=== PATIENT | female | born 1990 | race Caucasian/White ===

== ENCOUNTER 2018-04-04 02:00 | Day surgery (SDC) | payer OTHER ==
[2018-04-04 02:26] VITALS: BP 130/71; TEMP 98.8; BMI 35.3
--- NOTE | 2018-04-04 11:05 | PRG ---
DATE OF SERVICE: 04/04/2018 OB ER ENCOUNTER. PRIMARY OB: Dr. Olviier Baird. CHIEF COMPLAINT: Abdominal pain. HISTORY OF PRESENT ILLNESS: The patient is a 28-year-old G4, P2 female with an intrauterine at 27 weeks and 6 days, who is transferred from [facility] for abdominal pain and . The patient reports that she has been having some left lower quadrant pain, mild in nature, and seems to be associated with activity and movement. The patient denies any vaginal bleeding or leakage of fluid. She denies uterine contractions. The patient denies any fever, fall, headache, chest pain, shortness of breath, nausea, vomiting, diarrhea, or constipation. She denies any new rashes, hip problems, knee problems, muscle weakness. Denies vaginal bleeding, leakage of fluid, urinary urgency. PAST MEDICAL HISTORY: Deafness with cochlear implants and vision problems. PAST SURGICAL HISTORY: She had an ectopic in 2010 and a lumpectomy in 2006. SOCIAL HISTORY: Denies drug, alcohol, or tobacco use. ALLERGIES: NO KNOWN DRUG ALLERGIES. MEDICATIONS: vitamins. OB LABS: Hepatitis B surface antigen is nonreactive. RPR is nonreactive. Blood type is A positive with negative antibody screen. She is rubella immune. HIV is nonreactive. REVIEW OF SYSTEMS: Per HPI. PHYSICAL EXAMINATION: VITAL SIGNS: Blood pressure is 130/71, heart rate of 96, respiratory rate of 18, and temperature 98.8. GENERAL: She appears to be in no acute distress. She is alert, oriented, cooperative, and pleasant to interact with. There is some difficulty in communication due to the patient's deafness. She has an affect and predisposition. ABDOMEN: Soft. LUNGS: Clear to auscultation bilaterally. HEART: Regular rate and rhythm. She does have some mild tenderness to palpation in the left lower quadrant, but it does not appear to be causing too much discomfort to the patient. EXTREMITIES: Nontender and nonedematous. heart tracing performed. The fetus was noted to have a baseline in the 140s with moderate long-term variability. Positive 15 x 15 accelerations, no decelerations. The patient has no contractions visible on the monitor. ASSESSMENT AND PLAN: The patient is a 28-year-old female presenting with abdominal pain and noted to have musculoskeletal pain of . No evidence of labor at this time. The patient has a reassuring heart tracing for gestational age. She is being discharged to home with instructions to follow up with Dr. Baird as scheduled and has been given labor precautions. Job ID: [id number]
== END 2018-04-04 03:05 | disposition home or self-care (01) ==
LOC: ERS 02:00 → L&D/OP 03:05
PROVIDERS: ATTEND Obstetrics & Gynecology
DX: O26.892 Other specified pregnancy related conditions, second trimester (principal); R10.32 Left lower quadrant pain; O99.89 Other specified diseases and conditions complicating pregnancy, childbirth and the puerperium; H91.90 Unspecified hearing loss, unspecified ear; Z3A.27 27 weeks gestation of pregnancy; Z79.899 Other long term (current) drug therapy; Z96.21 Cochlear implant status
CPT/HCPCS: 90471; 90686; 99282; G0008

== ENCOUNTER 2018-04-24 20:06 | Day surgery (SDC) | payer OTHER ==
[2018-04-24 20:38] VITALS: BP 127/66; TEMP 98.6; BMI 20.6
[2018-04-24] MEDS ORDERED: Lactated Ringer's 1,000 ML IV SCH ×2 (22:00)
[2018-04-24] MEDS ORDERED: Acetaminophen 500 MG TAB PO SCH (22:00)
[2018-04-24] MEDS ORDERED: diphenhydrAMINE 50 MG/ML VIAL IVP PRN (22:00)
[2018-04-24] MEDS: Metoclopramide HCl 10 MG/2 ML VIAL IVP PRN ×2 (22:23→23:13)
--- NOTE | 2018-04-25 07:55 | PRG ---
DATE OF SERVICE: 04/25/2018 PRIMARY OB: Olivier Baird MD CHIEF COMPLAINT: Headache. HISTORY OF PRESENT ILLNESS: The patient is a 28-year-old G4, P2 female, with an intrauterine at 30 weeks and 5 days, who is presenting with a 2-week history of intermittent severe headaches. The patient denies a history of headaches prior to this event. She reports that her headaches are throbbing, light sensitive. The patient reports that they did not resolve with Tylenol. She also reports that she has been having some vision changes with the headaches. She denies nausea or vomiting or abdominal pain. She reports that the headache feels to be on the top, in the front of her head. The patient denies fall, fever, chest pain, shortness of breath, rhinorrhea, sore throat, dyspnea, or cough, dysuria or frequency, vaginal bleeding or increased discharge. Denies abnormal bleeding. Denies back pain or joint pain. Denies rash or mood changes. PAST MEDICAL HISTORY: She has deafness. PAST SURGICAL HISTORY: Salpingectomy for ectopic in 2009, a lumpectomy in 2006, cochlear implants and elective AB. MEDICATIONS: vitamins and Tylenol. ALLERGIES: NO KNOWN DRUG ALLERGIES. SOCIAL HISTORY: Denies drug, alcohol, tobacco use. LABORATORY DATA: Hepatitis B surface antigen is nonreactive. RPR is nonreactive. Blood type is A-positive with negative antibody screen. She is rubella immune and HIV is nonreactive. REVIEW OF SYSTEMS: Per HPI. PHYSICAL EXAMINATION: VITAL SIGNS: Blood pressure 120/63, heart rate of 90, respiratory rate of 17, temperature 98.6. GENERAL: She appears to be alert, oriented, cooperative, and pleasant to interact with. HEAD: Normocephalic, atraumatic. LUNGS: Clear to auscultation bilaterally. HEART: Has regular rate and rhythm. ABDOMEN: Gravid and soft, nontender. EXTREMITIES: Nontender, nonedematous. : Has been deferred. heart tracing shows a baseline in the 130s with moderate long-term variability, positive 15 x 15 accelerations, no decelerations. Tocometer does not show any contractions. ASSESSMENT AND PLAN: The patient is a 28-year-old G4, P2 female with an intrauterine at 30 weeks and 5 days, who is presenting with headaches. Her history is consistent with migraine headaches. We explained to her the course of treatment with IV fluids and IV Reglan and Benadryl. After one dose of Benadryl and two doses of Reglan, the patient reports that her headaches have completely resolved. Fetus has a reactive NST and category 1 tracing. The patient is being discharged to home with instructions to follow up with her primary OB as scheduled. labor precautions have been given. Job ID: [id number]
== END 2018-04-24 23:40 | disposition home or self-care (01) ==
LOC: L&D/OP 20:06
PROVIDERS: ATTEND Obstetrics & Gynecology
DX: O99.89 Other specified diseases and conditions complicating pregnancy, childbirth and the puerperium (principal); R51 Headache; H91.90 Unspecified hearing loss, unspecified ear; Z3A.30 30 weeks gestation of pregnancy; Z96.21 Cochlear implant status; Z79.899 Other long term (current) drug therapy
CPT/HCPCS: 96360; 96361; 96375; 99283; J1200; J2765

== ENCOUNTER 2018-06-21 05:30 | Inpatient (IN) | payer OTHER ==
--- NOTE | 2018-06-20 20:48 | PDOC.LDHP ---
Labor and Delivery H&P Chief complaint: scheduled induction HPI: 28 y/o at 39 and 0/7 weeks for term medical induction of labor. Due date: 06/28/18 Grav: 5 Para: 2 Current complications: other (hearing impairment) Abnormal US findings: No Current medications: pre-deven vitamins Allergies/Adverse Reactions: Allergies Allergy/AdvReac Type Severity Reaction Status Date / Time No Known Drug Allergies Allergy Verified 04/24/18 20:34 - Physical Exam Vital signs reviewed and normal: yes General: NAD, resting Heart: RRR Lungs: CTAB Abdomen: gravid Extremeties: no edema FHT: category 1 - Assessment L&D Assessment: elective induction at term - Plan Plan: admit to L&D, cervical ripening
[~2018-06-21 05:30] MED LIST: Butorphanol Tartrate 1 MG/ML VIAL SLOW IVP PRN; Carboprost 250 MCG/ML AMP IM PRN; Diphenoxylate HCl/Atropine Tablet PO PRN; Docusate 100 MG CAP PO PRN; HYDROcodone/Acetaminophen 5/325 mg Tablet PO PRN; Ibuprofen 800 MG TAB PO PRN; Lidocaine 1% (PF) 30 ML VIAL SC PRN; Methylergonovine 0.2 MG/ML VIAL IM PRN; Misoprostol 200 MCG TAB PR PRN; NS w/ Oxytocin 10 units 500 ML IV SCH; Ondansetron PF 4 MG/2 ML Vial IVP PRN; Promethazine HCl 25 MG/ML VIAL IM PRN
[2018-06-21 06:47] VITALS: BMI 37.8
[2018-06-21] MEDS: Lactated Ringer's 1,000 ML IV SCH ×2 (07:17→15:00)
[2018-06-21 07:48] LABS: Hemoglobin 10.8 g/dL (12.0-16.0); Mean Corpuscular HGB CONC 33.5 g/dL (32.0-36.0); Mean Corpuscular Hemoglobin 28.2 pg (27.0-31.0); Mean Corpuscular Volume 84.2 fL (78.0-98.0); Mean Platelet Volume 9.3 fL (7.4-10.4); Platelet Count 189 thou/uL (130-400); RBC Distribution Width 18.1 % (11.5-14.5); Red Blood Cell (RBC) Count 3.82 mill/uL (4.20-5.40); White Blood Cell (WBC) Count 9.4 thou/uL (4.8-10.8)
[2018-06-21 08:26] LABS: HBSAg Index 0.33 S/CO (0-0.99); Hep B Surf Ag Non-Reactive S/CO (NonReactive); Syphilis Antibody Nonreactive (Nonreactive); Syphilis Antibody Index 0.02 S/CO (<1.00 Non-Reactive)
[2018-06-21] MEDS ORDERED: Sodium Chloride 0.9% (PF) 10 ML VIAL ONE (11:11)
[2018-06-21] MEDS ORDERED: Bupivacaine 0.25% HCL 30 ML VIAL ONE (11:11)
[2018-06-21] MEDS ORDERED: Fentanyl 4 mcg/Bup 0.1% Cadd 100 ML ONE (14:12)
[2018-06-21] MEDS ORDERED: Lidocaine 1.5%/Epinephrine 1:200,000 5 ML AMPUL IJ ONE (15:04)
[2018-06-21] MEDS ORDERED: Eucerin (Mineral Oil/Petrolatum,White) 30 gm Jar TOP PRN (15:31)
[2018-06-21] MEDS ORDERED: Promethazine HCl 25 MG/ML VIAL IM PRN ×2 (15:31→20:52)
[2018-06-21] MEDS ORDERED: diphenhydrAMINE 50 MG/ML VIAL IVP PRN (15:31)
[2018-06-21] MEDS ORDERED: Ondansetron PF 4 MG/2 ML Vial IVP PRN ×2 (15:31→20:52)
[2018-06-21] MEDS ORDERED: Naloxone HCl 0.4 mg/ml Vial IVP PRN ×2 (15:31)
[2018-06-21] MEDS ORDERED: Lactated Ringer's 500 ML IV PRN (15:31)
[2018-06-21] MEDS ORDERED: Acetaminophen 325 MG TAB PO PRN (15:31)
[2018-06-21] MEDS ORDERED: ePHEDrine/0.9% NaCl/PF SYRINGE 50 mg/10 ml SLOW IVP PRN (15:31)
[2018-06-21] MEDS ORDERED: Fentanyl 4 mcg/Bupivacaine 0.1% Cassette 100 ML EPIDURAL SCH (15:45)
[2018-06-21] MEDS ORDERED: Communication Order-Pharmacy FS SCH (15:45)
[2018-06-21] MEDS: NS / Oxytocin 40 units/1000ml 1,000 ML IV PRN ×2 (19:35→20:50)
[2018-06-21] MEDS ORDERED: Preparation H Ointment 28 GM TUBE PR PRN (20:52)
[2018-06-21] MEDS ORDERED: Benzocaine-Menthol 82.5 ML CAN TOP PRN (20:52)
[2018-06-21] MEDS ORDERED: diphenhydrAMINE 25 MG CAP PO PRN (20:52)
[2018-06-21] MEDS ORDERED: Bisacodyl 10 MG SUPP PR PRN (20:52)
[2018-06-21] MEDS ORDERED: HYDROcodone/Acetaminophen 5/325 mg Tablet PO PRN (20:52)
[2018-06-21] MEDS ORDERED: Milk Of Magnesia 30 ML UDCUP PO PRN (20:52)
[2018-06-21] MEDS ORDERED: Lanolin Ointment 7 GM TUBE TOP PRN (20:52)
[2018-06-21] MEDS ORDERED: NS / Oxytocin 40 units/1000ml 1,000 ML IV SCH (21:15)
[2018-06-21] MEDS: Ibuprofen 800 MG TAB PO SCH (23:05)
[2018-06-21] MEDS: Docusate Calcium (SURFAK) 240 MG CAP PO SCH (23:06)
[2018-06-22] MEDS: Ibuprofen 800 MG TAB PO SCH ×3 (06:24→22:41)
[2018-06-22 06:45] LABS: Hemoglobin 10.4 g/dL (12.0-16.0); Mean Corpuscular HGB CONC 33.3 g/dL (32.0-36.0); Mean Corpuscular Hemoglobin 28.1 pg (27.0-31.0); Mean Corpuscular Volume 84.4 fL (78.0-98.0); Mean Platelet Volume 9.2 fL (7.4-10.4); Platelet Count 192 thou/uL (130-400); RBC Distribution Width 18.1 % (11.5-14.5); Red Blood Cell (RBC) Count 3.71 mill/uL (4.20-5.40); White Blood Cell (WBC) Count 11.1 thou/uL (4.8-10.8)
[2018-06-22] MEDS: Ferrous Sulfate 325 MG TAB PO SCH ×2 (07:36→17:01)
[2018-06-22] MEDS: HYDROcodone/Acetaminophen 5/325 mg Tablet PO PRN ×3 (07:41→17:10)
[2018-06-22] MEDS: Lactated Ringer's 1,000 ML IV SCH ×2 (08:14→08:15)
[2018-06-22] MEDS: Docusate Calcium (SURFAK) 240 MG CAP PO SCH ×2 (08:51→22:42)
[2018-06-22] MEDS ORDERED: Adacel (T-DAP) 0.5 ML SYRINGE IM ONE (09:00)
[2018-06-22] MEDS ORDERED: Varicella virus, LIVE 0.5 ML VIAL SC ONE (09:00)
[2018-06-22] MEDS ORDERED: Measles/Mumps/Rubella 10 MCG/0.5 ML VIAL SC ONE (09:00)
--- NOTE | 2018-06-22 12:25 | PDOC.PP ---
Post Progress Note Post Day #: 1 PO intake tolerated: yes Flatus: yes Ambulation: yes Vital Signs (12 hours) Temp Pulse Resp BP Pulse Ox 06/22/18 12:01 98.0 F 90 20 131/64 06/22/18 08:31 98.1 F 90 20 135/68 98 06/22/18 03:30 98.5 F 97 20 115/57 L 06/22/18 00:35 98.9 F 93 18 126/63 Weight Weight 234 lb - Physical Examination General: NAD Cardiovascular: no m/r/g Respiratory: clear to auscultation bilaterally, non-labored breathing Abdominal: + bowel sounds, lochia Extremities: negative homans (B) Neurological: no gross focal deficits Psychiatric: A&Ox3, normal affect (DC to home when baby is discharged) Result Diagrams: 06/22/18 06:06 Additional Labs: Post Labs Blood Type A POSITIVE 06/21/18 07:57 Hep Bs Antigen Non-Reactive S/CO (NonReactive) 06/21/18 07:21
[2018-06-23] MEDS: Ibuprofen 800 MG TAB PO SCH (05:42)
--- NOTE | 2018-06-23 05:44 | DN ---
DATE OF PROCEDURE: 06/21/2018 PREOPERATIVE DIAGNOSIS: Intrauterine at 39 weeks with a term induction of labor. POSTOPERATIVE DIAGNOSIS: Intrauterine at 39 weeks with a term induction of labor. PROCEDURE PERFORMED: Spontaneous vaginal delivery over intact perineum. FINDINGS: Viable male , weighing 4003 g or 8 pounds 13 ounces, Apgars 8 and 9. QUANTITATIVE BLOOD LOSS: 35 mL. COMPLICATIONS: None. PROCEDURE IN DETAIL: The patient presented to [facility] where she was admitted to the labor and delivery service. The patient underwent a normal and uneventful labor with normal cervical dilatation until she was found to be completely dilated. She was then allowed to push and was able to bring the baby down and delivered the baby in a vertex presentation without difficulties. Once the head delivered in occiput anterior position, the shoulders followed spontaneously along with the rest of the baby's body. Once out the baby's mouth and nose were bulb suctioned. The cord was clamped and cut and baby was handed to waiting attendants. Cord blood was collected. Gentle fundal massage was performed and the placenta delivered intact without problems. Hemostasis was assured. Quantitative blood loss was calculated. Inspection of the cervix, vaginal vault, and perineum did not reveal any lacerations needing suturing. Once again, hemostasis was within normal limits and the patient was allowed to recover in the labor and delivery room. Baby went to nursery. Job ID: [id number]
[2018-06-23 07:40] VITALS: BP 113/66; TEMP 98
[2018-06-23] MEDS: Ferrous Sulfate 325 MG TAB PO SCH (07:52)
[2018-06-23] MEDS: Docusate Calcium (SURFAK) 240 MG CAP PO SCH (08:14)
== END 2018-06-23 11:45 | disposition home or self-care (01) | DRG 807 ==
LOC: L&D 05:59 → 3SW 22:39
PROVIDERS: ADMIT Obstetrics & Gynecology; ATTEND Obstetrics & Gynecology
PROC: 10E0XZZ Delivery of Products of Conception, External Approach (ICD-10-PCS; principal; 2018-06-21)
PROC: 3E0P7VZ Introduction of Hormone into Female Reproductive, Via Natural or Artificial Opening (ICD-10-PCS; 2018-06-21)
DX: O80 Encounter for full-term uncomplicated delivery (principal); Z37.0 Single live birth; Z3A.39 39 weeks gestation of pregnancy
CPT/HCPCS: 36415; 51702; 85027; 86780; 86850; 86900; 86901; 87340; J2001; J3490; S0020

== ENCOUNTER 2019-02-26 13:08 | Emergency (ER) | payer OTHER ==
[2019-02-26 15:09] LABS: #Eosinphils 0.1 thou/uL (0.0-0.7); #Monocytes 0.6 thou/uL (0.11-0.59); #Neutrophils 6.9 thou/uL (1.40-6.50); %Lymphocytes 11.1 % (21.0-51.0); %Monocytes 7.2 % (0.0-10.0); %Neutrophils 80.6 % (42.0-75.0); Hemoglobin 12.2 g/dL (12.0-16.0); Mean Corpuscular HGB CONC 34.3 g/dL (32.0-36.0); Mean Corpuscular Hemoglobin 28.7 pg (27.0-31.0); Mean Corpuscular Volume 83.7 fL (78.0-98.0); Mean Platelet Volume 8.6 fL (7.4-10.4); Platelet Count 194 thou/uL (130-400); RBC Distribution Width 13.5 % (11.5-14.5); Red Blood Cell (RBC) Count 4.24 mill/uL (4.20-5.40); White Blood Cell (WBC) Count 8.6 thou/uL (4.8-10.8)
[2019-02-26 15:32] LABS: ALT (SGPT) Less than 7 U/L (8-55); AST (SGOT) 11 U/L (5-34); Albumin 3.8 g/dL (3.5-5.0); Alkaline Phosphatase 81 U/L (40-110); Anion Gap 13 mmol/L (10-20); BUN (Urea Nitrogen) 5 mg/dL (7.0-18.7); Bilirubin, Total 0.4 mg/dL (0.2-1.2); Calc. Creatinine Clearance 0 mL/min (70-130); Carbon Dioxide 23 mmol/L (22-29); Chloride 104 mmol/L (98-107); Estimated GFR-MDRD Greater than 90; Glucose 93 mg/dL (70-105); Potassium 3.4 mmol/L (3.5-5.1); Protein, Total 6.8 g/dL (6.0-8.3); Sodium 137 mmol/L (136-145)
[2019-02-26 16:17] LABS: Bacteria/HPF 4+ HPF (None Seen); Bilirubin Negative (Negative); Blood, Urine Negative (Negative); Clarity Turbid (Clear); Glucose, Urine (Dipstick) Normal (Negative); Leukocyte 500 Leu/uL (Negative); Nitrite Negative (Negative); Protein, Urine (Dipstick) 10 mg/dL (Neg-Trace); Urobilinogen Normal mg/dL (Less than 2)
== END 2019-02-26 15:50 | disposition home or self-care (01) ==
LOC: ERS 13:08
DX: O99.512 Diseases of the respiratory system complicating pregnancy, second trimester (principal); J11.1 Influenza due to unidentified influenza virus with other respiratory manifestations; Z3A.15 15 weeks gestation of pregnancy
CPT/HCPCS: 80053; 81003; 81015; 85025; 87804; 93005; 96360

== ENCOUNTER 2019-07-21 17:42 | Day surgery (SDC) | payer MEDICARE, MEDICAID ==
[2019-07-21 18:27] VITALS: BMI 43.5
[2019-07-21] MEDS ORDERED: hydrALAZINE 20 MG/ML VIAL SLOW IVP PRN (18:43)
[2019-07-21 19:08] LABS: Amnisure Test No Membranes Rupture (No Rupture)
[2019-07-21 19:09] LABS: Amnisure Internal Control QC ACCEPTABLE (ACCEPTABLE)
--- NOTE | 2019-07-22 00:56 | SS ---
DATE OF ADMISSION: 07/21/2019 DATE OF DISCHARGE: 07/21/2019 REGULAR PHYSICIAN: Olivier Baird MD EVALUATING PHYSICIAN: Audie Cochran MD CHIEF COMPLAINT: Back pain with suspected loss of fluid x2 weeks. HISTORY OF PRESENT ILLNESS: Ms. Cummins is a 29-year-old, white, G6, P3, with an estimated date of confinement of 08/18/2019, who presents with a 3-week history of intermittent back pain, possible contractions, and leakage of fluid. She was seen by Dr. Baird, last week and told to come to Labor and Delivery for evaluation, which she did not do. Her care with Dr. Baird has been reportedly uncomplicated. PAST OBSTETRICAL HISTORY: Includes 3 vaginal deliveries at term, all reportedly uncomplicated. PAST MEDICAL HISTORY: Hearing impairment PAST SURGICAL HISTORY: Includes breast lump removal. ALLERGIES: NO KNOWN ALLERGIES. SOCIAL HISTORY: Denies tobacco, alcohol, or drug use. FAMILY HISTORY: Unremarkable. REVIEW OF SYSTEMS: Denies nausea, vomiting, fever, chills, or vaginal bleeding. PHYSICAL EXAMINATION: VITAL SIGNS: In triage, her vital signs are stable. She is afebrile. GENERAL: She is pleasant, in no acute distress. An certified court interpreter using sign language was used to communicate with her. ABDOMEN: Soft, nontender, and gravid. Sterile speculum exam of the vagina shows a small amount of white discharge. No fluid is seen. Sterile vaginal exam shows the cervix to be 2 cm dilated and thick. heart rate tracing is stable. No regular contractions are seen. DIAGNOSTIC DATA: AmniSure returns negative. VP3 testing returns negative. ASSESSMENT: 1. 35- and 6/7-week intrauterine . 2. No evidence of ruptured membranes. PLAN: The patient will be dismissed to home. Precautions were reviewed with her through an certified court interpreter. She voiced understanding of her discharge instructions and was sent home in good condition. Job ID: [id number] MTDD
== END 2019-07-21 20:23 | disposition home or self-care (01) ==
LOC: L&D/OP 17:42
PROVIDERS: ATTEND Obstetrics & Gynecology
DX: O99.89 Other specified diseases and conditions complicating pregnancy, childbirth and the puerperium (principal); N89.8 Other specified noninflammatory disorders of vagina; M54.9 Dorsalgia, unspecified; H91.90 Unspecified hearing loss, unspecified ear; Z3A.35 35 weeks gestation of pregnancy; Z88.0 Allergy status to penicillin
CPT/HCPCS: 84112; 87480; 87510; 87660

== ENCOUNTER 2019-08-12 05:30 | Inpatient (IN) | payer MEDICARE, MEDICAID, OTHER ==
--- NOTE | 2019-08-12 02:16 | PDOC.LDHP ---
Labor and Delivery H&P Chief complaint: scheduled induction HPI: 29y/o at 39 and 0/7 weeks, presents for term induction of labor. 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
[~2019-08-12 05:30] MED LIST changes: +Acetaminophen 500 MG TAB PO PRN; +NS / Oxytocin 40 units/1000ml 1,000 ML IV PRN; +hydrALAZINE 20 MG/ML VIAL SLOW IVP PRN
[2019-08-12] MEDS: Lactated Ringer's 1,000 ML IV SCH ×3 (15:29→18:44)
[2019-08-12 15:38] VITALS: BMI 39.6
[2019-08-12 15:48] LABS: Hemoglobin 10.6 g/dL (12.0-16.0); Mean Corpuscular HGB CONC 32.2 g/dL (32.0-36.0); Mean Corpuscular Hemoglobin 25.9 pg (27.0-31.0); Mean Corpuscular Volume 80.4 fL (78.0-98.0); Mean Platelet Volume 9.7 fL (7.4-10.4); Platelet Count 235 thou/uL (130-400); RBC Distribution Width 16.1 % (11.5-14.5); Red Blood Cell (RBC) Count 4.09 mill/uL (4.20-5.40); White Blood Cell (WBC) Count 10.6 thou/uL (4.8-10.8)
[2019-08-12 16:25] LABS: Syphilis Antibody Nonreactive (Nonreactive); Syphilis Antibody Index 0.02 S/CO (<1.00 Non-Reactive)
[2019-08-12 16:26] LABS: HBSAg Index 0.68 S/CO (0-0.99); Hep B Surf Ag Non-Reactive S/CO (NonReactive)
[2019-08-12] MEDS ORDERED: Fentanyl 4 mcg/Bup 0.1% Cadd 100 ML ONE (18:50)
[2019-08-12] MEDS ORDERED: Promethazine HCl 25 MG/ML VIAL IM PRN ×2 (19:12→23:19)
[2019-08-12] MEDS ORDERED: EPHEDRINE 25 MG/5 ML SYRINGE SLOW IVP PRN (19:12)
[2019-08-12] MEDS ORDERED: Ondansetron PF 4 MG/2 ML Vial IVP PRN ×2 (19:12→23:19)
[2019-08-12] MEDS ORDERED: Lactated Ringer's 500 ML IV PRN (19:12)
[2019-08-12] MEDS ORDERED: Naloxone HCl 0.4 mg/ml Vial IVP PRN ×2 (19:12)
[2019-08-12] MEDS ORDERED: Acetaminophen 325 MG TAB PO PRN (19:12)
[2019-08-12] MEDS ORDERED: diphenhydrAMINE 50 MG/ML VIAL IVP PRN (19:12)
[2019-08-12] MEDS ORDERED: Fentanyl 4 mcg/Bupivacaine 0.1% Cassette 100 ML EPIDURAL SCH (19:15)
[2019-08-12] MEDS ORDERED: Communication Order-Pharmacy FS SCH (19:15)
[2019-08-12] MEDS ORDERED: HYDROcodone/Acetaminophen 5/325 mg Tablet PO PRN ×2 (23:19)
[2019-08-12] MEDS ORDERED: Milk Of Magnesia 30 ML UDCUP PO PRN (23:19)
[2019-08-12] MEDS ORDERED: NS / Oxytocin 40 units/1000ml 1,000 ML IV SCH (23:19)
[2019-08-12] MEDS ORDERED: Zolpidem Tartrate 5 MG TAB PO PRN (23:19)
[2019-08-12] MEDS ORDERED: hydrALAZINE 20 MG/ML VIAL SLOW IVP PRN (23:19)
[2019-08-12] MEDS ORDERED: diphenhydrAMINE 25 MG CAP PO PRN (23:19)
[2019-08-12] MEDS ORDERED: Benzocaine-Menthol 82.5 ML CAN TOP PRN (23:19)
[2019-08-12] MEDS ORDERED: Bisacodyl 10 MG SUPP PR PRN (23:19)
[2019-08-12] MEDS ORDERED: Methylergonovine 0.2 MG/ML VIAL IM PRN (23:19)
[2019-08-12] MEDS ORDERED: Lanolin Ointment 7 GM TUBE TOP PRN (23:19)
[2019-08-12] MEDS ORDERED: Misoprostol 200 MCG TAB VAG PRN (23:19)
[2019-08-12] MEDS ORDERED: Preparation H Ointment 28 GM TUBE PR PRN (23:19)
[2019-08-12] MEDS ORDERED: Docusate Calcium (SURFAK) 240 MG CAP PO SCH (23:30)
[2019-08-12] MEDS ORDERED: Ibuprofen 800 MG TAB PO SCH (23:30)
[2019-08-13] MEDS: Ibuprofen 800 MG TAB PO SCH ×4 (01:30→21:32)
[2019-08-13 06:16] LABS: Hemoglobin 10.3 g/dL (12.0-16.0); Mean Corpuscular HGB CONC 32.2 g/dL (32.0-36.0); Mean Corpuscular Volume 80.7 fL (78.0-98.0); Mean Platelet Volume 9.2 fL (7.4-10.4); Platelet Count 219 thou/uL (130-400); RBC Distribution Width 16.2 % (11.5-14.5); Red Blood Cell (RBC) Count 3.96 mill/uL (4.20-5.40); White Blood Cell (WBC) Count 12.3 thou/uL (4.8-10.8)
[2019-08-13] MEDS: Ferrous Sulfate 325 MG TAB PO SCH ×2 (08:12→21:14)
[2019-08-13] MEDS: Prenatal Vitamin 1 TAB PO SCH (08:13)
[2019-08-13] MEDS: Docusate Calcium (SURFAK) 240 MG CAP PO SCH ×2 (08:13→21:32)
[2019-08-13] MEDS ORDERED: Adacel (T-DAP) 0.5 ML SYRINGE IM ONE (09:00)
[2019-08-13] MEDS ORDERED: Measles/Mumps/Rubella 10 MCG/0.5 ML VIAL SC ONE (09:00)
[2019-08-13] MEDS ORDERED: Varicella virus, LIVE 0.5 ML VIAL SC ONE (09:00)
--- NOTE | 2019-08-13 12:51 | PDOC.PP ---
Post Progress Note Post Day #: 1 PO intake tolerated: yes Flatus: yes Ambulation: yes Vital Signs (12 hours) Temp Pulse Resp BP Pulse Ox 08/13/19 11:28 98.6 F 87 20 108/56 L 08/13/19 07:40 98.9 F 75 20 124/57 L 95 Weight Weight 246 lb - Physical Examination General: NAD Cardiovascular: no m/r/g, RRR Respiratory: clear to auscultation bilaterally, non-labored breathing Abdominal: + bowel sounds, lochia, no distention Extremities: negative homans (B) Neurological: no gross focal deficits Psychiatric: A&Ox3, normal affect (DC tonight planned) Result Diagrams: 08/13/19 06:01 Additional Labs: Post Labs Blood Type A POSITIVE 08/12/19 15:34 Hep Bs Antigen Non-Reactive S/CO (NonReactive) 08/12/19 15:33
--- NOTE | 2019-08-13 18:16 | DN ---
DATE OF PROCEDURE: 08/12/2019 TIME: 2016 [place] Daylight Savings Time. PREOPERATIVE DIAGNOSIS: Intrauterine at 39 weeks with a scheduled term induction of labor. POSTOPERATIVE DIAGNOSIS: Intrauterine at 39 weeks with a scheduled term induction of labor. PROCEDURE PERFORMED: Spontaneous vaginal delivery over intact perineum. FINDINGS: Viable female , weighing 8 pounds and 7 ounces. Apgars of 9 and 9. QUANTITATIVE BLOOD LOSS: 115 mL. COMPLICATIONS: None. PROCEDURE IN DETAIL: The patient presented to [facility] where she was admitted to the labor and delivery service. The patient underwent a normal and uneventful labor with normal cervical dilatation until she was found to be completely dilated. She was then allowed to push and was able to bring the baby down and delivered the baby in a vertex presentation without difficulties. Once the head delivered in occiput anterior position, the shoulders followed spontaneously along with the rest of the baby's body. Once out the baby's mouth and nose were bulb suctioned. The cord was clamped and cut and baby was handed to waiting attendants. Cord blood was collected. Gentle fundal massage was performed and the placenta delivered intact without problems. Hemostasis was assured. Quantitative blood loss was calculated. Inspection of the cervix, vaginal vault, and perineum did not reveal any lacerations needing suturing. Once again, hemostasis was within normal limits and the patient was allowed to recover in the labor and delivery room. Baby went to nursery. Job ID: [id number]
[2019-08-14] MEDS: Ibuprofen 800 MG TAB PO SCH (05:31)
[2019-08-14 08:02] VITALS: BP 113/55; TEMP 98
[2019-08-14] MEDS: Ferrous Sulfate 325 MG TAB PO SCH (09:13)
[2019-08-14] MEDS: Docusate Calcium (SURFAK) 240 MG CAP PO SCH (09:14)
[2019-08-14] MEDS: Prenatal Vitamin 1 TAB PO SCH (09:14)
== END 2019-08-14 12:00 | disposition home or self-care (01) | DRG 806 ==
LOC: L&D-LIB 13:21 → 3SW 08-13 00:44
PROVIDERS: ADMIT Obstetrics & Gynecology; ATTEND Obstetrics & Gynecology
PROC: 10E0XZZ Delivery of Products of Conception, External Approach (ICD-10-PCS; principal; 2019-08-12)
PROC: 3E033VJ Introduction of Other Hormone into Peripheral Vein, Percutaneous Approach (ICD-10-PCS; 2019-08-12)
DX: O99.214 Obesity complicating childbirth (principal); O98.52 Other viral diseases complicating childbirth; Z37.0 Single live birth; E66.9 Obesity, unspecified; B00.9 Herpesviral infection, unspecified; Z3A.39 39 weeks gestation of pregnancy
CPT/HCPCS: 36415; 51702; 85027; 86780; 86850; 86900; 86901; 87340; 87635; 90715; J2590; U0003